=== PATIENT | male | born 1990 | race African-American/Black ===

== ENCOUNTER 2016-03-06 18:00 | Emergency (ER) ==
--- NOTE | 2016-03-06 18:49 | PROVIDER DOCUMENTATION ---
HPI-Respiratory General - General Chief Complaint: Flu Symptoms Stated Complaint: CONGESTED, CHILLS Time Seen by Provider: 03/06/16 18:37 Source: patient Allergies/Adverse Reactions: Patient Allergies Allergy/AdvReac Type Severity Reaction Status Date / Time No Known Allergies Allergy Verified 03/06/16 18:56 - History of Present Illness-Resp Nature of Presenting Problem: 25 y/o BM c/o cough, congestion, rhinorrhea, sneezing x 4 days. Pt states that he is coughing up yellow/white mucus. States 2 sick contacts. Denies any fever /chills, sore throat, N/V/D/C, abd. pain. States rib pain with cough. Review of Systems - Adult - REVIEW OF SYSTEMS - ADULT Constitutional: reports: no symptoms reported. denies: chills, fever Eyes: reports: no symptoms reported. denies: blurred vision, double vision Ears, Nose, Mouth & Throat: reports: see HPI, sinus problem. denies: ear pain, nose pain, throat pain Cardiovascular: reports: no symptoms reported. denies: chest pain, palpitations Respiratory: reports: see HPI, cough. denies: shortness of breath Gastrointestinal: reports: no symptoms reported. denies: abdominal pain, nausea , vomiting Genitourinary: reports: no symptoms reported. denies: dysuria, frequency Musculoskeletal: reports: no symptoms reported. denies: joint pain, joint swelling Integumentary: reports: no symptoms reported. denies: nail changes, rash Neurological: reports: no symptoms reported. denies: numbness, paresthesia Psychiatric: reports: no symptoms reported Endocrine: reports: no symptoms reported. denies: cold intolerance, heat intolerance Hematologic/Lymphatic: reports: no symptoms reported. denies: easy bruising, prolonged bleeding Allergic/Immunologic: reports: no symptoms reported All Other Systems: Reviewed and Negative Past History - Adult - PAST MEDICAL HISTORY-ADULT Review of Records: reports: Nursing Assessment Review, Medications Reviewed Major Childhood Illnesses: reports: denies history Cardiovascular: reports: denies history Respiratory: reports: denies history Gastrointestinal: reports: denies history Genitourinary: reports: denies history Musculoskeletal: reports: denies history Neurological: reports: denies history Endocrine/Immune: reports: denies history Other Conditions: reports: denies history - PRIOR SURGERIES/PROCEDURES Surgical/Procedure History: reports: none, tonsillectomy - PRIOR HOSPITALIZATIONS Prior Hospitalizations: reports: none - IMMUNIZATION STATUS Childhood Immunizations: See Nurse Assessment Flu Vaccine: See Nurse Assessment - FAMILY HISTORY Family History: reviewed, not pertinent - SOCIAL HISTORY Smoking: denies Alcohol Use Frequency: occasionally Physical Exam-General - PHYSICAL EXAM-ADULT Initial Vital Signs Reviewed: Yes - CONSTITUTIONAL General Appearance: alert, mild distress - EYES Eyes: pink conjunctivae - HEAD, EARS, NOSE, MOUTH & THROAT HENMT: normocephalic/atraumatic, moist mucous membranes, pharyngeal erythema. negative: tonsillar exudate - NECK Neck: supple, normal inspection. negative: lymphadenopathy - RESPIRATORY Respiratory: lungs clear, no respiratory distress, decreased breath sounds. negative: crackles, rales, rhonchi, stridor, wheezing - CARDIOVASCULAR Cardiovascular: regular rate, rhythm. negative: bradycardia, tachycardia - GASTROINTESTINAL (ABDOMEN) Abdominal Exam: normal bowel sounds, non tender, soft. negative: distended, guarding, rigid - MUSCULOSKELETAL Extremity: normal gait - SKIN Integumentary: normal color, normal turgor, warm/dry - NEUROLOGIC Neurologic: negative: aphasia - PSYCHIATRIC Psych/Mental Status: normal mood/affect, normal thought content, normal thought process, oriented x 3 Progress - PLAN OF CARE/RESULTS Progress/Plan/Lab Results: Orders Category Date Time Status CHEST-2 VIEWS [RAD] Stat Exams 03/06/16 18:38 Taken INFLUENZA SCREEN A/B Stat Lab 03/06/16 18:28 Completed Amoxicillin [Amoxil] Med 03/06/16 20:17 Discontinued 750 mg PO NOW ONE Dexamethasone [Decadron] Med 03/06/16 20:17 Discontinued 8 mg PO NOW ONE Vital Signs Temp Pulse Resp BP Pulse Ox 03/06/16 18:33 99.4 F 110 H 16 127/75 99 No Known Allergies Allergy (Verified 03/06/16 18:56) Amoxicillin [Amoxil] 875 mg PO BID #14 tablet 03/06/16 Guaifenesin/D-Methorphan Hb/PE [Deconex Dmx Tablet] 1 each PO TID #30 tablet 07/16 Prednisone 20 mg PO DAILY #12 tablet 03/06/16 Discussed Xray and influenza screen results with pt, including return precautions and f/u. - XRAY 1 XRAY Study: Chest XRAY Interpretation: No PNA Departure - Departure Time of Disposition Order: 20:16 DIAGNOSIS: Bronchitis DIAGNOSIS: (Ruled Out): Influenza Disposition: HOME 01 Certified Medical Emergency: Emergent Condition: Stable Additional Instructions: Take medications as directed. Follow up with PCP in 5 days for recheck. Return if symptoms get worse. ED Follow Up Instructions: You have been treated by a care provider in the Emergency Department. These instructions are being provided to you so you can have an understanding of how to care for yourself upon discharge. Upon discharge from the Emergency Department, you are responsible for making arrangements for follow-up care by a physician of your choice. Take all prescribed medications as directed. Return to the Emergency Department immediately for any new or worsening symptoms. You may call the Physician Referral phone number at [phone] to obtain a list of Physicians who are taking new patients. Prescriptions: Amoxicillin [Amoxil] 875 mg PO BID #14 tablet Guaifenesin/D-Methorphan Hb/PE [Deconex Dmx Tablet] 1 each PO TID #30 tablet Prednisone 20 mg PO DAILY #12 tablet Referrals: None,PCP [Primary Care Provider] - Attestation - Physician/ Mid-level Attestation Patient care was provided by Mid-level provider (HOSE MAKER/PA):: Yes Mid-level provider:: Saba Vaz Mid-level documentation review:: The Mid-level provider documentation, treatment plan and medical decision making was reviewed by the physician who agrees with all treatment and medical decision making by the MLP.
[2016-03-06] MEDS ORDERED: AMOXIL PO ONE (20:17)
[2016-03-06] MEDS ORDERED: DECADRON PO ONE (20:17)
[2016-03-06] MEDS ORDERED: TYLENOL PO ONE (20:24)
[2016-03-06 20:38] VITALS: BP 119/67
--- NOTE | 2016-03-07 07:59 | Diag Imaging Result Document ---
PROCEDURE NAME: CHEST-2 VIEWS - 03/06/2016 TWO VIEWS OF THE CHEST: FINDINGS: There is a partially calcified granuloma in the left lower lobe. There is no evidence of acute cardiac or pulmonary disease and compared to 09/06/2015 there has been no significant change. IMPRESSION: Granulomatous changes. Stable chest.
== END 2016-03-06 20:37 | disposition home or self-care (01) ==
LOC: ED 18:00
DX: J40 Bronchitis, not specified as acute or chronic (principal); R05 Cough; R09.81 Nasal congestion; J34.89 Other specified disorders of nose and nasal sinuses; R06.7 Sneezing; R09.3 Abnormal sputum
CPT/HCPCS: 71020; 87804; 99282; J8540